=== PATIENT | female | born 1985 | race Caucasian/White ===

== ENCOUNTER 2020-08-23 12:08 | Emergency (ER) | payer OTHER ==
[2020-08-23 12:19] VITALS: BP 129/71; PULSE 77; TEMP 97.9; BMI 38.0
[2020-08-23] MEDS ORDERED: predniSONE 20 MG TABLET (UD) PO ONE (12:40)
[2020-08-23] MEDS ORDERED: predniSONE 20 MG TABLET (UD) ONE (12:43)
== END 2020-08-23 13:07 | disposition home or self-care (01) ==
LOC: JERFT 12:08
DX: L30.9 Dermatitis, unspecified (principal)
CPT/HCPCS: 99283-25

== ENCOUNTER 2023-03-01 01:20 | Inpatient (IN) | payer OTHER ==
[2023-03-01] MEDS ORDERED: LIDOCAINE HCL 1% PRESERVATIVE FREE - 30ML VIAL ONE (02:38)
[2023-03-01] MEDS ORDERED: OXYTOCIN 20 UNITS in 0.9% NS 20 UNIT/1,000 ML INFUS.BAG IV ONE (02:39)
[2023-03-01] MEDS: OXYTOCIN 20 UNITS in 0.9% NS 20 UNIT/1,000 ML INFUS.BAG IV SCH ×2 (02:55→04:45)
[2023-03-01 03:00] LABS: BASO % 0.4 % (0-2.0); EOS % 0.3 % (0-4.5); HEMATOCRIT 34.9 % (32.4-45.2); HEMOGLOBIN 11.4 GM/dL (10.7-15.3); LYMPH % 15.1 % (8-40); MCH 26.8 pg (25.7-33.7); MCHC 32.7 g/dl (32.0-36.0); MEAN PLT VOLUME 9.9 fl (7.5-11.1); NEUT % 79.2 % (42.8-82.8); PLATELET COUNT 308 10^3/uL (134-434); RBC 4.26 M/mm3 (3.60-5.2); RDW 14.9 % (11.6-15.6); WHITE BLOOD COUNT 11.8 K/mm3 (4.0-10.0)
[2023-03-01 03:05] LABS: INR 0.96 (0.83-1.09); PROTHROMBIN TIME (PATIENT) 11.1 SEC (9.7-13.0)
[2023-03-01] MEDS: IBUPROFEN 600 MG TABLET (FP) PO PRN ×2 (03:05→08:14)
[2023-03-01] MEDS ORDERED: IBUPROFEN 600 MG TABLET (FP) PO ONE (03:06)
[2023-03-01 03:09] LABS: RETICULOCYTES 1.45 % (0.5-1.5)
[2023-03-01] MEDS ORDERED: METHYLERGONOVINE MALEATE 0.2 MG/1 ML AMP IM PRN (03:10)
[2023-03-01] MEDS ORDERED: WITCH HAZEL 50% (TUCKS) 40 PAD/JAR PAD TP PRN (03:10)
[2023-03-01] MEDS ORDERED: BENZOCAINE 28 GM HEMORRHOIDAL OINTMENT TP PRN (03:10)
[2023-03-01] MEDS ORDERED: ACETAMINOPHEN 325 MG TABLET (FP) PO PRN (03:10)
[2023-03-01] MEDS ORDERED: BENZOCAINE 20% 57 GM BOTTLE TP PRN (03:10)
[2023-03-01] MEDS ORDERED: oxyCODONE HCL 5 MG TABLET PO PRN (03:10)
[2023-03-01] MEDS ORDERED: BISACODYL 10 MG SUPP.RECT RC PRN (03:10)
[2023-03-01 03:19] LABS: POTASSIUM 4.4 mmol/L (3.5-5.1)
[2023-03-01 03:20] LABS: CALCIUM 8.8 mg/dL (8.5-10.1)
[2023-03-01 03:21] LABS: BLOOD UREA NITROGEN 14.3 mg/dL (7-18)
[2023-03-01 03:24] LABS: CREATININE 0.7 mg/dL (0.55-1.3); URIC ACID 4.1 mg/dL (2.6-7.2)
[2023-03-01 03:36] VITALS: BMI 36.5
[2023-03-01 03:55] LABS: CORD BASE EXCESS -6.6 mmol/L (0-2); CORD HCO3 20.1 mmHg (20-29); CORD pH 7.277 (7.14-7.44)
[2023-03-01 03:57] LABS: CORD BASE EXCESS -6.6 mmol/L (0-2); CORD HCO3 21.6 mmHg (20-29); CORD PCO2 53.3 mmHg (30-78); CORD pH 7.226 (7.14-7.44)
[2023-03-01] MEDS: ELECTROLYTE-148 SOLN 1,000 ML IV SCH (04:12)
[2023-03-01 17:58] VITALS: RESP 18
[2023-03-02 06:42] LABS: BASO % 0.4 % (0-2.0); EOS % 1.2 % (0-4.5); HEMATOCRIT 28.2 % (32.4-45.2); HEMOGLOBIN 9.2 GM/dL (10.7-15.3); LYMPH % 37.4 % (8-40); MCH 26.9 pg (25.7-33.7); MCHC 32.7 g/dl (32.0-36.0); MEAN CELL VOLUME 82.2 fl (80-96); MONO % 7.2 % (3.8-10.2); NEUT % 53.8 % (42.8-82.8); PLATELET COUNT 238 10^3/uL (134-434); RBC 3.43 M/mm3 (3.60-5.2); RDW 15.3 % (11.6-15.6); WHITE BLOOD COUNT 9.3 K/mm3 (4.0-10.0)
[2023-03-02] MEDS: ELECTROLYTE-148 SOLN 1,000 ML IV SCH (19:14)
[2023-03-02] MEDS ORDERED: SENNOSIDES/DOCUSATE COMBO (SENNA PLUS) TABLET (UD) PO PRN (22:00)
[2023-03-03 09:52] VITALS: BP 130/84; PULSE 77; TEMP 98.4
== END 2023-03-03 14:10 | disposition home or self-care (01) | DRG 560 ==
LOC: JLDR 01:20 → J3W 05:00
PROVIDERS: ADMIT Obstetrics & Gynecology; ATTEND Obstetrics & Gynecology
PROC: 10E0XZZ Delivery of Products of Conception, External Approach (ICD-10-PCS; principal; 2023-03-01)
DX: O99.214 Obesity complicating childbirth (principal); Z3A.40 40 weeks gestation of pregnancy; Z37.0 Single live birth
CPT/HCPCS: 36415; 36600; 80048; 82803; 82977; 83010; 84450; 84460; 84550; 85025; 85045; 85610; 85730; 86780; 86850; 86900; 86901

== ENCOUNTER 2023-05-17 04:14 | Day surgery (SDC) | payer OTHER ==
[2023-05-15 13:20] VITALS: BMI 40.2
[2023-05-17] MEDS ORDERED: BUPIVACAINE HCL/PF 0.5% (5MG/ML) 10 ML VIAL ONE (12:10)
[2023-05-17] MEDS ORDERED: PROPOFOL 40 ML ONE (12:11)
[2023-05-17] MEDS ORDERED: SUCCINYLCHOLINE CHLORIDE 200 MG/10 ML SYRINGE ONE (12:11)
[2023-05-17] MEDS ORDERED: HYDROmorphone HCl 2 MG/ML VIAL ONE (12:34)
[2023-05-17] MEDS ORDERED: BUPIVACAINE HCL/PF 0.5% (5MG/ML) 10 ML VIAL IJ ONE ×2 (12:40→12:49)
[2023-05-17] MEDS ORDERED: GLYCOPYRROLATE 0.2 MG/1 ML VIAL ONE (13:10)
[2023-05-17] MEDS ORDERED: NEOSTIGMINE METHYLSULFATE 0.5 MG/1 ML - 10 ML MDV ONE (13:10)
[2023-05-17] MEDS ORDERED: FENTANYL CITRATE/PF 50 MCG/ML VIAL ONE (13:14)
[2023-05-17] MEDS ORDERED: oxyCODONE HCL 5 MG TABLET PO PRN (13:26)
[2023-05-17] MEDS ORDERED: ONDANSETRON 4 MG/2 ML VIAL IVPUSH PRN (13:26)
[2023-05-17] MEDS ORDERED: LACTATED RINGERS SOLUTION 1,000 ML IV SCH (13:30)
[2023-05-17 14:47] VITALS: PULSE 69
[2023-05-17 16:18] VITALS: BP 136/78; RESP 18; TEMP 97.9
== END 2023-05-17 16:05 | disposition home or self-care (01) ==
LOC: JASU-SURG 04:14
PROVIDERS: ATTEND Student in an Organized Health Care Education/Training Program
PROC: 0UB74ZZ Excision of Bilateral Fallopian Tubes, Percutaneous Endoscopic Approach (ICD-10-PCS; principal; 2023-05-17 12:30)
DX: Z30.2 Encounter for sterilization (principal)
CPT/HCPCS: 81025; 88305-TC; 94760